=== PATIENT | male | born 1990 | race Caucasian/White ===

== ENCOUNTER 2017-12-18 10:04 | Emergency (ER) | payer BC ==
[2017-12-18 10:52] VITALS: BP 131/66
--- NOTE | 2017-12-18 10:58 | UC ---
Skin Complaint HPI - HPI Summary HPI Summary: 27 yo male presents with right great toe ingrown nail with pain, drainage, and redness getting progressively worse over the last 2-3 days. Is able to ambulate without assistance or limp. Denies fever, chills. - History of Current Complaint Chief Complaint: UCSkin Time Seen by Provider: 12/18/17 10:57 Stated Complaint: RIGHT BIG TOE COMLAINT Hx Obtained From: Patient Onset/Duration: Gradual Onset Onset Severity: Mild Current Severity: Moderate Pain Intensity: 3 Pain Scale Used: 0-10 Numeric - Allergy/Home Medications Allergies/Adverse Reactions: Allergies Allergy/AdvReac Type Severity Reaction Status Date / Time amoxicillin Allergy Hives Verified 12/18/17 10:48 Review of Systems Constitutional: Negative Skin: Other - Right great toe ingrown nail with redness and pain Respiratory: Negative Cardiovascular: Negative Neurovascular: Negative Musculoskeletal: Negative Neurological: Negative Psychological: Negative All Other Systems Reviewed And Are Negative: Yes PMH/Surg Hx/FS Hx/Imm Hx - Additional Past Medical History Additional PMH: None Previously Healthy: Yes - Surgical History Surgical History: None - Family History Known Family History: Positive: None - Social History Lives: Alone Alcohol Use: Occasionally Substance Use Type: None Smoking Status (MU): Never Smoked Tobacco Physical Exam - Summary Physical Exam Summary: GENERAL: NAD. WDWN. No pain distress. SKIN: Right great toe: lateral aspect of nail with moderate edema and erythema. Actively draining mild blood and purulent yellow matter when palpated. No streaking. NECK: Supple. Nontender. No lymphadenopathy. CHEST: No accessory muscle use. Breathing comfortably and in no distress. CV: RRR. Without m/r/g. NEURO: Alert. CN II-XII grossly intact. PSYCH: Age appropriate behavior. Triage Information Reviewed: Yes Vital Signs: Initial Vital Signs Temp 98.4 F 12/18/17 10:45 Pulse 61 12/18/17 10:45 Resp 16 12/18/17 10:45 BP 131/66 12/18/17 10:45 Pulse Ox 100 12/18/17 10:45 Course/Dx - Course Course Of Treatment: Paronychia right great toe - Diagnoses Provider Diagnoses: Paronychia right great toe Discharge - Sign-Out/Discharge Documenting (check all that apply): Discharge/Admit/Transfer - Discharge Plan Condition: Stable Disposition: HOME Prescriptions: Cephalexin CAP* [Keflex CAP*] 500 mg PO BID #[id number] Patient Education Materials: Alison (ED) Referrals: Non Staff,Doctor [Primary Care Provider] - Additional Instructions: If you develop a fever, shortness of breath, chest pain, new or worsening symptoms - please call your PCP or go to the ED. - Billing Disposition and Condition Condition: STABLE Disposition: Home
== END 2017-12-18 11:16 | disposition home or self-care (01) ==
LOC: UCCORT 10:04
DX: L03.031 Cellulitis of right toe (principal); Z88.0 Allergy status to penicillin
CPT/HCPCS: 99202; G0463